=== PATIENT | male | born 1980 | race Caucasian/White ===

== ENCOUNTER 2022-03-10 13:58 | Day surgery (SDC) | payer OTHER, SELFPAY ==
[2022-03-10] VITALS (7 sets, daily range): BP systolic 128–164; BP diastolic 79–114; PULSE 66–78; RESP 18; TEMP 36.3–36.7; O2SAT 97–98; BMI 37.7; BMI 40.4
--- NOTE | 2022-03-10 15:23 | CRLHL7_ITS ---
For Patients: As a result of the Century Cures Act, medical imaging exams and procedure reports are released immediately into your electronic medical record. You may view this report before your referring provider. If you have questions, please contact your health care provider. INDICATION: Eval for cholecystitis.. TECHNIQUE: Ultrasound abdomen limited. Sonographic images of the right upper quadrant were obtained using coates-scale and color Doppler images. COMPARISON: None. FINDINGS: Liver: Echogenic and heterogeneous.. No suspicious masses. No intrahepatic biliary dilatation. Gallbladder: A few stones are identified in the gallbladder neck. Mild wall thickening measuring up to 6 millimeters. No pericholecystic fluid. Negative sonographic Blanchard`s sign reported. Common bile duct: 9 mm, mildly dilated. Pancreas: Not well visualized. Right kidney: Normal in size. Normal echotexture and cortex. No suspicious masses, stones, or hydronephrosis. Vasculature: Proximal abdominal aorta and IVC are unremarkable. IMPRESSION: Cholelithiasis with mild gallbladder wall thickening. No pericholecystic fluid. Negative sonographic Blanchard sign reported. Findings are nonspecific but can be seen in the setting of cystitis. Hepatic steatosis. Dictated by Nahun Crespo MD @ 03/10/2022 4:30:19 PM (Electronically Signed)
--- NOTE | 2022-03-10 15:25 | ED.GENADULT ---
HPI - General Adult General Time Seen by Provider: 15:25 <Georgi Gupta MD - Last Filed: 03/10/22 20:22> Date Seen: 03/10/22 <Georgi Gupta MD - Last Filed: 03/10/22 20:22> Chief complaint: Abdominal Pain <Georgi Gupta MD - Last Filed: 03/10/22 20:22> Stated complaint: Abdominal Pain, white stool <Georgi Gupta MD - Last Filed: 03/10/22 20:22> Time Seen by Provider: 03/10/22 15:10 <Georgi Gupta MD - Last Filed: 03/10/22 20:22> Source: patient <Georgi Gupta MD - Last Filed: 03/10/22 20:22> History of Present Illness HPI narrative: Brayden is a 42-year-old male past medical history includes depression presents emerged department with with abdominal pain. Patient states that over the last month he has had intermittent epigastric abdominal pain. He had 1 episode 1 month ago after golfing, he felt like he was going to vomit, he ended up belching in the pain improved. Over the last 2 days the pain has persisted, pain is epigastric , radiates to the right upper quadrant area, associated nausea but no vomiting. Gets worse with certain foods. Denies any chest pain or shortness of breath, denies any diarrhea or constipation, denies any urinary complaints. No history of any abdominal surgeries, no history of any CAD. Pain has been persistent over the last 2 days, 2/10 so he came in to be evaluated. He has tried [id number] and acid which does not help. <Georgi Gupta MD - Last Filed: 03/10/22 20:22> Related Data Home medications: Home Medications Medication Instructions Recorded Confirmed fluoxetine 20 mg capsule 20 mg PO QDAY 03/03/22 03/03/22 trazodone 50 mg tablet 50 - 150 mg PO .HS tab 03/03/22 03/03/22 <Georgi Gupta MD - Last Filed: 03/10/22 20:22> Allergies/adverse reactions: Allergies Allergy/AdvReac Type Severity Reaction Status Date / Time Penicillins Allergy Mild Verified 03/03/22 07:35 <Georgi Gupta MD - Last Filed: 03/10/22 20:22> Review of Systems Status of ROS: Reports: 10 or more systems reviewed and unremarkable except as noted in History and below <Georgi Gupta MD - Last Filed: 03/10/22 20:22> [facility] Medical History: Medical History (Updated 03/10/22 @ 19:45 by Radames Ann MD) Depression Hyperlipemia Sleep apnea with use of continuous positive airway pressure (CPAP) <Georgi Gupta MD - Last Filed: 03/10/22 20:22> Surgical History: Surgical History (Updated 03/03/22 @ 07:34 by Dionte Lawson PA-C) History of tonsillectomy <Georgi Gupta MD - Last Filed: 03/10/22 20:22> Family History: Family History (Updated 03/03/22 @ 07:39 by Dionte Lawson PA-C) Father Hypercholesteremia Sister Thyroid disease Stroke Diane-Danlos disease Other Coronary artery disease Family history of breast cancer Leukemia Lung cancer Prostate cancer <Georgi Gupta MD - Last Filed: 03/10/22 20:22> Social History: Social History Smoking Status: Never smoker Do you use any of these nicotine containing products: None Second hand tobacco smoke exposure: Yes How often do you have a drink containing alcohol: 2-3 times a week How many standard drinks containing alcohol do you have on a typical day: 1 or 2 How often do you have six or more drinks on one occasion: Monthly AUDIT-C Alcohol total score: 5 Non-prescribed substance use: denies use service: No <Georgi Gupta MD - Last Filed: 03/10/22 20:22> Exam Narrative: Exam Narrative: General: No obvious distress, nontoxic in appearance HEENT: Pupils equal round reactive to light, extraocular muscles intact Neck: Supple full range of motion Lungs: Clear to auscultation Heart normal sinus rhythm S1-S2 Abdomen: Bowel sounds present, tender to palpation epigastric and right upper quadrant Muscle skeletal: +5 upper lower extremities Neuro: Awake alert and oriented x3 Psych: Mood and affect normal <Georgi Gupta MD - Last Filed: 03/10/22 20:22> Const: Vital Signs, click to edit/add: Vital Signs - 24 hr 03/10/22 14:09 03/10/22 16:05 Temperature 97.8 F Pulse Rate [Right Radial] 67 Respiratory Rate 18 Blood Pressure [Ri ght Upper Arm] 128/79 136/92 H Pulse Oximetry 97 97 <Georgi Gupta MD - Last Filed: 03/10/22 20:22> Course Course Hospital Course: Work up will include, basic labs including CBC, CRP, lipase, troponin I, CMP and urinalysis, will give him GI cocktail, seems more related to heartburn or possible gallbladder, will also obtain U.S. gallbladder. Pain is 09/06, and patient agree <Georgi Gupta MD - Last Filed: 03/10/22 20:22> Reevaluation(s) Reevaluation #1: Patient was updated on his imaging and lab results, ultrasound showed mildly gallbladder wall thickening at 6 mm, common bile duct mildly dilated at 9 mm, no pericholecystic fluid negative Blanchard sign, this was read by Radiology. CBC showed no leukocytosis, CRP mildly elevated at 1.5, metabolic panel showed total bilirubin 04.6, AST of 630, alkaline phosphatase 341. Plan to call Dr. Mendez surgery on-call, she recommended is obtaining a direct bilirubin, then if elevated consideration for cholecystectomy tomorrow. Will also repeat troponiI. This was discussed with patient and narrowing agreement. <Georgi Gupta MD - Last Filed: 03/10/22 20:22> Time: 16:57 <Georgi Gupta MD - Last Filed: 03/10/22 20:22> Reevaluation #2: Patient was updated on his lab results, direct bilirubin was normal, 2nd troponin was negative, urinalysis within normal limits. Spoke with Dr. Mendez, she recommended admission for cholecystectomy tomorrow. Spoke with hospitalist on-call Dr. Holly ROCK, she accepts care of the patient to a [facility] surgery bed. All questions answered. <Georgi Gupta MD - Last Filed: 03/10/22 20:22> Vital Signs Vital signs: Initial Vital Signs Temperature 97.8 F 03/10/22 14:09 Temperature Source Temporal Artery Scan 03/10/22 14:09 Pulse Rate 67 03/10/22 14:09 Pulse Rhythm 03/10/22 14:09 Respiratory Rate 18 03/10/22 14:09 Blood Pressure 128/79 03/10/22 14:09 Blood Pressure Mean 95 03/10/22 14:09 Blood Pressure Position Sitting 03/10/22 14:09 Pulse Oximetry 97 03/10/22 14:09 Oxygen Delivery Method 03/10/22 14:09 Vital Signs Temperature 97.8 F 03/10/22 14:09 Pulse Rate 67 03/10/22 14:09 Respiratory Rate 18 03/10/22 14:09 Blood Pressure 128/79 03/10/22 14:09 Pulse Oximetry 97 03/10/22 14:09 Temperature 97.8 F 03/10/22 14:09 Pulse Rate 67 03/10/22 14:09 Respiratory Rate 18 03/10/22 14:09 Blood Pressure 136/92 H 03/10/22 16:05 Pulse Oximetry 97 03/10/22 16:05 <Georgi Gupta MD - Last Filed: 03/10/22 20:22> Medical Decision Making Lab Data Labs: Lab Results 03/10/22 03/10/22 03/10/22 Range/Units 15:30 15:40 15:45 WBC 8.36 (4.50-11.00) K/uL RBC 4.88 (4.30-5.90) m/uL Hgb 13.9 (13.5-17.5) gm/dL Hct 44.1 (37.0-53.0) % MCV 90 (80-100) fL MCH 29 (26-34) pg MCHC 32 (32-36) gm/dL RDW Coeff of Aye 13.8 (11.5-15.5) % Plt Count 327 (140-440) K/uL Neut % (Auto) 69.3 (42.0-72.0) % Lymph % (Auto) 19.1 L (20-44) % [place] % (Auto) 8.0 (0.0-11.0) % Eos % (Auto) 2.5 (0.0-7.0) % Baso % (Auto) 0.6 (0.0-3.0) % Neut # (Auto) 5.79 (1.7-7.0) K/uL Lymph # (Auto) 1.60 (0.90-2.90) K/uL [place] # (Auto) 0.70 (0.00-0.90) K/UL Eos # (Auto) 0.21 (0.00-0.50) K/uL Baso # (Auto) 0.05 (0.00-0.30) K/uL Abs Immat Gran (auto) 0.04 (0.00-0.30) K/uL Sodium (135-149) mmol/L Potassium (3.6-5.1) mmol/L Chloride (96-114) mmol/L Carbon Dioxide (20-32) mmol/L BUN (5-24) mg/dL Creatinine (0.5-1.5) mg/dL Estimated Creat Clear Estimated GFR ml/min Glucose (60-115) mg/dL Calcium (8.4-10.6) mg/dL Total Bilirubin (0.1-1.5) mg/dL Direct Bilirubin 0.3 (0.0-0.5) mg/dL AST (12-35) U/L ALT (4-50) U/L Alkaline Phosphatase (40-150) U/L Troponin I 0.05 H (0.01-0.04) ng/mL C-Reactive Protein (0.5-1.0) mg/dL Total Protein (6.0-8.3) g/dL Albumin (3.3-5.0) g/dL Lipase (23-300) U/L Urine Color (Yellow) Urine Appearance (Clear) Urine pH (5.0-8.5) Ur Specific [place] (1.000-1.030) Urine Protein (Negative) Urine Glucose (UA) (Negative) Urine Ketones (Negative) Urine Blood (Negative) Urine Nitrite (Negative) Urine Bilirubin (Negative) Urine Urobilinogen (0.2-1.0) Ur Leukocyte Esterase (Negative) Urine RBC (0-2) Urine WBC (0-5) Ur Squamous Epith Cells (None-Few) Urine Bacteria (None) SARS-CoV-2 (PCR) (Negative) 03/10/22 03/10/22 03/10/22 Range/Units 15:45 15:55 17:42 WBC (4.50-11.00) K/uL RBC (4.30-5.90) m/uL Hgb (13.5-17.5) gm/dL Hct (37.0-53.0) % MCV (80-100) fL MCH (26-34) pg MCHC (32-36) gm/dL RDW Coeff of Aye (11.5-15.5) % Plt Count (140-440) K/uL Neut % (Auto) (42.0-72.0) % Lymph % (Auto) (20-44) % [place] % (Auto) (0.0-11.0) % Eos % (Auto) (0.0-7.0) % Baso % (Auto) (0.0-3.0) % Neut # (Auto) (1.7-7.0) K/uL Lymph # (Auto) (0.90-2.90) K/uL [place] # (Auto) (0.00-0.90) K/UL Eos # (Auto) (0.00-0.50) K/uL Baso # (Auto) (0.00-0.30) K/uL Abs Immat Gran (auto) (0.00-0.30) K/uL Sodium 139 (135-149) mmol/L Potassium 5.4 H (3.6-5.1) mmol/L Chloride 106 (96-114) mmol/L Carbon Dioxide 23 (20-32) mmol/L BUN 13 (5-24) mg/dL Creatinine 0.9 (0.5-1.5) mg/dL Estimated Creat Clear 132.61 Estimated GFR 110 ml/min Glucose 102 (60-115) mg/dL Calcium 9.0 (8.4-10.6) mg/dL Total Bilirubin 4.6 H (0.1-1.5) mg/dL Direct Bilirubin (0.0-0.5) mg/dL AST 630 H (12-35) U/L ALT 21 (4-50) U/L Alkaline Phosphatase 341 H (40-150) U/L Troponin I < 0.01 L (0.01-0.04) ng/mL C-Reactive Protein 1.5 H (0.5-1.0) mg/dL Total Protein 7.7 (6.0-8.3) g/dL Albumin 4.5 (3.3-5.0) g/dL Lipase 88 (23-300) U/L Urine Color Allie A (Yellow) Urine Appearance Clear (Clear) Urine pH 5.5 (5.0-8.5) Ur Specific [place] 1.020 (1.000-1.030) Urine Protein Negative (Negative) Urine Glucose (UA) Negative (Negative) Urine Ketones Negative (Negative) Urine Blood Trace-lysed A (Negative) Urine Nitrite Negative (Negative) Urine Bilirubin 3+ A (Negative) Urine Urobilinogen 0.2 (0.2-1.0) Ur Leukocyte Esterase Negative (Negative) Urine RBC 0-2 (0-2) Urine WBC 0-2 (0-5) Ur Squamous Epith Cells None (None-Few) Urine Bacteria None (None) SARS-CoV-2 (PCR) (Negative) 03/10/22 Range/Units 18:39 WBC (4.50-11.00) K/uL RBC (4.30-5.90) m/uL Hgb (13.5-17.5) gm/dL Hct (37.0-53.0) % MCV (80-100) fL MCH (26-34) pg MCHC (32-36) gm/dL RDW Coeff of Aye (11.5-15.5) % Plt Count (140-440) K/uL Neut % (Auto) (42.0-72.0) % Lymph % (Auto) (20-44) % [place] % (Auto) (0.0-11.0) % Eos % (Auto) (0.0-7.0) % Baso % (Auto) (0.0-3.0) % Neut # (Auto) (1.7-7.0) K/uL Lymph # (Auto) (0.90-2.90) K/uL [place] # (Auto) (0.00-0.90) K/UL Eos # (Auto) (0.00-0.50) K/uL Baso # (Auto) (0.00-0.30) K/uL Abs Immat Gran (auto) (0.00-0.30) K/uL Sodium (135-149) mmol/L Potassium (3.6-5.1) mmol/L Chloride (96-114) mmol/L Carbon Dioxide (20-32) mmol/L BUN (5-24) mg/dL Creatinine (0.5-1.5) mg/dL Estimated Creat Clear Estimated GFR ml/min Glucose (60-115) mg/dL Calcium (8.4-10.6) mg/dL Total Bilirubin (0.1-1.5) mg/dL Direct Bilirubin (0.0-0.5) mg/dL AST (12-35) U/L ALT (4-50) U/L Alkaline Phosphatase (40-150) U/L Troponin I (0.01-0.04) ng/mL C-Reactive Protein (0.5-1.0) mg/dL Total Protein (6.0-8.3) g/dL Albumin (3.3-5.0) g/dL Lipase (23-300) U/L Urine Color (Yellow) Urine Appearance (Clear) Urine pH (5.0-8.5) Ur Specific [place] (1.000-1.030) Urine Protein (Negative) Urine Glucose (UA) (Negative) Urine Ketones (Negative) Urine Blood (Negative) Urine Nitrite (Negative) Urine Bilirubin (Negative) Urine Urobilinogen (0.2-1.0) Ur Leukocyte Esterase (Negative) Urine RBC (0-2) Urine WBC (0-5) Ur Squamous Epith Cells (None-Few) Urine Bacteria (None) SARS-CoV-2 (PCR) Negative SARS-CoV-2 (Negative) <Georgi Gupta MD - Last Filed: 03/10/22 20:22> Discharge Plan Discharge Clinical Impression: Acute cholecystitis <Georgi Gupta MD - Last Filed: 03/10/22 20:22>
[2022-03-10 16:04] LABS: Basophils Absolute Auto 0.05 K/uL (0.00-0.30); Basophils Percent Auto 0.6 % (0.0-3.0); Eosinophils Absolute Auto 0.21 K/uL (0.00-0.50); Eosinophils Percent Auto 2.5 % (0.0-7.0); Hematocrit 44.1 % (37.0-53.0); Hemoglobin* 13.9 gm/dL (13.5-17.5); Immature Granulocytes Abs Auto 0.04 K/uL (0.00-0.30); Lymphocytes Percent Auto 19.1 % (20-44); Mean Corpuscular HGB Conc 32 gm/dL (32-36); Mean Corpuscular Hemoglobin 29 pg (26-34); Mean Corpuscular Volume 90 fL (80-100); Neutrophils Absolute Auto 5.79 K/uL (1.7-7.0); Neutrophils Percent Auto 69.3 % (42.0-72.0); Platelet Count* 327 K/uL (140-440); RDW Coefficient of Variation % 13.8 % (11.5-15.5); Red Blood Count 4.88 m/uL (4.30-5.90); White Blood Count* 8.36 K/uL (4.50-11.00)
[2022-03-10 16:12] LABS: Slide Review Reflex No
[2022-03-10 16:15] LABS: Appearance Urine Clear (Clear); Bilirubin Urine 3+ (Negative); Blood Urine Trace-lysed (Negative); Color Urine Amber (Yellow); Glucose Urine Negative (Negative); Ketones Urine Negative (Negative); Leukocyte Esterase Urine Negative (Negative); Nitrite Urine Negative (Negative); Protein Urine Negative (Negative); Urobilinogen Urine 0.2 (0.2-1.0); pH Urine 5.5 (5.0-8.5)
[2022-03-10 16:31] LABS: RBC Urine 0-2 (0-2); WBC Urine 0-2 (0-5)
[2022-03-10 16:31] LABS: Albumin* 4.5 g/dL (3.3-5.0); Chloride* 106 mmol/L (96-114)
[2022-03-10 16:32] LABS: Potassium* 5.4 mmol/L (3.6-5.1); Sodium* 139 mmol/L (135-149)
[2022-03-10 16:34] LABS: Aspartate Amino Transferase* 630 U/L (12-35); Bilirubin Total* 4.6 mg/dL (0.1-1.5); Carbon Dioxide* 23 mmol/L (20-32); Creatinine* 0.9 mg/dL (0.5-1.5); Est. Creatinine Clearance* 132.61; Estimated Glomerular Filt Rate 110 ml/min; Total Protein* 7.7 g/dL (6.0-8.3)
[2022-03-10 16:35] LABS: Alkaline Phosphatase* 341 U/L (40-150); Blood Urea Nitrogen* 13 mg/dL (5-24); Glucose* 102 mg/dL (60-115); Lipase* 88 U/L (23-300)
[2022-03-10 16:37] LABS: C Reactive Protein* 1.5 mg/dL (0.5-1.0)
[2022-03-10 16:48] LABS: Alanine Aminotransferase* 21 U/L (4-50)
[2022-03-10] MEDS: GI COCKTAIL (VISC LIDO/ANTACID) 30 ML PO (16:49)
[2022-03-10 16:58] LABS: Troponin I* 0.05 ng/mL (0.01-0.04)
[2022-03-10 17:10] LABS: Bilirubin Direct* 0.3 mg/dL (0.0-0.5)
[2022-03-10 18:17] LABS: Troponin I* < 0.01 ng/mL (0.01-0.04)
--- NOTE | 2022-03-10 19:14 | P.IMHP_ITS ---
Hospitalist- H&P: HPI History of Present Illness Time Seen by Provider: 20:00 Date Seen: 03/10/22 Chief complaint: Abdominal Pain, white stool Narrative: Brayden Boucher is a 42 year old male who presented to the Emergency Room for epigastric abdominal pain. He first noted pain, intermittently, one month ago. Last flare began 48 hours ago, still having epigastric pain. Started having nurse staff community health colored stools over the past 48 hours, no other stool changes. No uri nary changes. No fevers. Minimal appetite over the past few days. No CP, dyspnea, or tachypnea. Recent URI symptoms (cough and rhinorrhea), negative COVID testing. ER Course and findings: - elevated LFTs - cholecystitis on ultrasound - elevated potassium (wnl on repeat) - mildly elevated troponin of 0.05, repeat wnl at <0.01, normal EKG - given one dose of po Levaquin History of depression/anxiety, on Prozac. History of insomnia, on Trazodone. On CPAP for TONI. No history of blood clots. Tonsillectomy in 2nd grade. No personal or family history of anesthetic complications. Family history of cardiac disease in grandfather and uncles, seen by Cardiology with normal TTE in 2020. Lives with with and son in [place]. 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 Nonsmoker. Review of Systems Status of ROS: Reports: 10 or more systems reviewed and unremarkable except as noted in History and below [facility] Medical History (Updated 03/10/22 @ 19:45 by Radames Ann MD) Depression Hyperlipemia Sleep apnea with use of continuous positive airway pressure (CPAP) Surgical History (Updated 03/03/22 @ 07:34 by Dionte Lawson PA-C) History of tonsillectomy Family History (Updated 03/03/22 @ 07:39 by Dionte Lawson PA-C) Father Hypercholesteremia Sister Thyroid disease Stroke Diane-Danlos disease Other Coronary artery disease Family history of breast cancer Leukemia Lung cancer Prostate cancer Social History Smoking Status: Never smoker Do you use any of these nicotine containing products: None Second hand tobacco smoke exposure: Yes How often do you have a drink containing alcohol: 2-3 times a week How many standard drinks containing alcohol do you have on a typical day: 1 or 2 How often do you have six or more drinks on one occasion: Monthly AUDIT-C Alcohol total score: 5 Non-prescribed substance use: denies use service: No Meds Home Medications and Allergies Home Medications Medication Instructions Recorded Confirmed Type fluoxetine 20 mg capsule 20 mg PO QDAY 03/03/22 03/03/22 History trazodone 50 mg tablet 50 - 150 mg PO .HS tab 03/03/22 03/03/22 History Allergies Allergy/AdvReac Type Severity Reaction Status Date / Time Penicillins Allergy Mild Verified 03/03/22 07:35 Exam Narrative: Exam Narrative: GEN: Alert and oriented, answering questions appropriately and nontoxic in appearance HEENT: Normal external ears, EOMIs bilaterally, no scleral icterus CV: RRR, No concerning murmurs, rubs, or gallops R: LCTA bilaterally without concerning wheezing, rales, or rhonchi Ab: protuberant, no rebound or guarding, mild discomfort with palpation of epigastric region Ext: wwp, no concerning edema Skin: No concerning skin lesions or rashes on exposed skin Neuro: Nonfocal Psych: Appropriate Const: Vital Signs, click to edit/add: Vital Signs - 24 hr 03/10/22 14:09 03/10/22 16:05 Temperature 97.8 F Pulse Rate [Right Radial] 67 Respiratory Rate 18 Blood Pressure [Ri ght Upper Arm] 128/79 136/92 H Pulse Oximetry 97 97 Hospitalist - H&P: Result Labs Labs: Short CBC 03/10/22 Range/Units 15:45 WBC 8.36 (4.50-11.00) K/uL Hgb 13.9 (13.5-17.5) gm/dL Hct 44.1 (37.0-53.0) % Plt Count 327 (140-440) K/uL BMP 03/10/22 15:45 Sodium 139 Potassium 5.4 H Chloride 106 Carbon Dioxide 23 BUN 13 Creatinine 0.9 Glucose 102 Calcium 9.0 Cardiac Enzymes 03/10/22 03/10/22 Range/Units 15:40 17:42 Troponin I 0.05 H < 0.01 L (0.01-0.04) ng/mL Liver Function 03/10/22 03/10/22 Range/Units 15:30 15:45 Total Bilirubin 4.6 H (0.1-1.5) mg/dL Direct Bilirubin 0.3 (0.0-0.5) mg/dL AST 630 H (12-35) U/L ALT 21 (4-50) U/L Alkaline Phosphatase 341 H (40-150) U/L Albumin 4.5 (3.3-5.0) g/dL Urine 03/10/22 Range/Units 15:55 Urine Color Allie A (Yellow) Urine Appearance Clear (Clear) Urine pH 5.5 (5.0-8.5) Ur Specific [place] 1.020 (1.000-1.030) Urine Protein Negative (Negative) Urine Glucose (UA) Negative (Negative) Assessment and Plan Assessment and plan (1) Acute cholecystitis: Status: Acute Plan Admit to Same day surgery, Dr. Ann will see in the morning for cholecys tectomy. NPO after midnight. Repeat LFTs, Potassium, and troponin in the morning. Comorbidities optimized for surgery and anesthesia.
[2022-03-10] MEDS: levoFLOXacin 750 MG TABLET PO (19:19)
[2022-03-10 20:20] LABS: SARS PCR* Negative SARS-CoV-2 (Negative)
[2022-03-10 20:32] LABS: Potassium* 4.9 mmol/L (3.6-5.1)
--- NOTE | 2022-03-10 21:07 | ED.NURSE ---
report was given to karl tolbert on m/s. will go to 260 via w/c. has his book, cell phone, shirt. shorts and sandals on feet.
[2022-03-10] MEDS: PANTOPRAZOLE SODIUM 40 MG INJ IVP (21:27)
[2022-03-10] MEDS: ACETAMINOPHEN 325 MG TABLET 975 MG PO (21:27)
[2022-03-10] MEDS: TRAZODONE HCL 50 MG TABLET 100 MG PO (21:35)
[2022-03-11] VITALS (28 sets, daily range): BP systolic 120–160; BP diastolic 66–89; PULSE 51–81; RESP 12–20; TEMP 36–37.1; O2SAT 91–100
--- NOTE | 2022-03-11 | CRLHL7_ITS ---
For Patients: As a result of the Century Cures Act, medical imaging exams and procedure reports are released immediately into your electronic medical record. You may view this report before your referring provider. If you have questions, please contact your health care provider. INDICATION : Laparoscopic cholecystectomy. TECHNIQUE : Intraoperative cholangiogram. Contrast injected via gallbladder neck and cystic duct. FINDINGS : Fluoroscopy time was 78 seconds. 7 images were obtained. IMPRESSION : Several filling defects are present within the common bile duct. The biliary system is not dilated. I do not see contrast within the duodenum. Dictated by Valente East MD @ 03/11/2022 3:23:12 PM (Electronically Signed)
--- NOTE | 2022-03-11 06:16 | PC.NURSE ---
END OF SHIFT NOTE: PT PLEASANT AND COOPERATIVE. ARRIVED TO FLOOR 2055. PT GIVEN SOUP AND CRACKERS WITH SPRITE. 0 PT HAD EMESIS OF 700CC. PT NPO SINCE MIDNIGHT. PT REQUESTED RESTFUL NIGHT VITALS. PT BROUGHT HOME CPAP THAT WAS REVIEWED BY HOUSE SUP AND PT UTILIZED THROUGHOUT NIGHT. AMBULATES INDEPENDENTLY.
[2022-03-11 06:49] LABS: Basophils Absolute Auto 0.05 K/uL (0.00-0.30); Basophils Percent Auto 0.7 % (0.0-3.0); Eosinophils Percent Auto 2.7 % (0.0-7.0); Hematocrit 42.2 % (37.0-53.0); Hemoglobin* 13.6 gm/dL (13.5-17.5); Immature Granulocytes Abs Auto 0.06 K/uL (0.00-0.30); Mean Corpuscular HGB Conc 32 gm/dL (32-36); Mean Corpuscular Hemoglobin 29 pg (26-34); Mean Corpuscular Volume 89 fL (80-100); Monocytes Percent Auto 10.4 % (0.0-11.0); Neutrophils Absolute Auto 4.84 K/uL (1.7-7.0); Neutrophils Percent Auto 66.4 % (42.0-72.0); Platelet Count* 315 K/uL (140-440); Red Blood Count 4.74 m/uL (4.30-5.90)
[2022-03-11 07:02] LABS: Slide Review Reflex No
[2022-03-11 07:11] LABS: Albumin* 4.1 g/dL (3.3-5.0); Chloride* 104 mmol/L (96-114); Sodium* 138 mmol/L (135-149)
[2022-03-11 07:13] LABS: Creatinine* 0.9 mg/dL (0.5-1.5); Est. Creatinine Clearance* 132.61; Estimated Glomerular Filt Rate 110 ml/min
[2022-03-11 07:14] LABS: Alkaline Phosphatase* 358 U/L (40-150); Aspartate Amino Transferase* 451 U/L (12-35); Bilirubin Total* 5.3 mg/dL (0.1-1.5); Blood Urea Nitrogen* 10 mg/dL (5-24); Carbon Dioxide* 28 mmol/L (20-32); Glucose* 110 mg/dL (60-115); Lipase* 70 U/L (23-300)
[2022-03-11 07:27] LABS: Troponin I* < 0.01 ng/mL (0.01-0.04)
[2022-03-11 07:58] LABS: Alanine Aminotransferase* 945 U/L (4-50)
--- NOTE | 2022-03-11 08:34 | P.GSCN_ITS ---
History of Present Illness Consult details Consult date: 03/11/22 Narrative: 42-year-old male presented to emergency room with epigastric abdominal pain. Patient states that he initially experienced a similar episode of pain 1 month ago. In the last month he had 2 additional episodes. His most recent episode started last Monday. The pain was described as cramping and continued on the last 2 days. He cannot recall eating anything fatty. He thinks that his pain started during a work meeting. The crampy pain lasted for about 45 minutes but he continued to have ongoing dull ache in the epigastrium. The pain was also radiating to the right upper quadrant. In the emergency room he was found to have a normal WBC of 8.3. Total bilirubin was 4.6 was direct bilirubin of 0.3. His AST was 630 and ALT of 21, alkaline phosphatase 341. Patient's troponin initially was 0.05 and then repeat troponin was 0.01. Patient potassium was also elevated at 5.4 and decreased on repeat lab to 4.9. Patient had an abdominal ultrasound that showed cholelithiasis, gallbladder wall was 6 mm in the common bile duct was dilated to 9 m. Review of Systems Narrative: General: no fevers HENT: no problems swallowing CV: no shortness of breath Resp: no cough GI: see above : no dysuria, no increased urinary frequency Skin: no new rashes Musculoskeletal: no back pain Neuro: no muscle weakness Psyche: depression and anxiety [facility] Medical History (Updated 03/11/22 @ 09:10 by Radames Ann MD) Choledocholithiasis with acute cholecystitis Depression Hyperlipemia Sleep apnea with use of continuous positive airway pressure (CPAP) Surgical History History of tonsillectomy Family History Father Hypercholesteremia Sister Thyroid disease Stroke Diane-Danlos disease Other Coronary artery disease Family history of breast cancer Leukemia Lung cancer Prostate cancer Social History (Updated 03/11/22 @ 08:39 by Radames Ann MD) Narrative: patient works as client business manager. Highest level of school completed/degree received: Bachelor's degree Smoking Status: Never smoker Do you use any of these nicotine containing products: None Second hand tobacco smoke exposure: Yes How often do you have a drink containing alcohol: 2-3 times a week How many standard drinks containing alcohol do you have on a typical day: 1 or 2 How often do you have six or more drinks on one occasion: Monthly AUDIT-C Alcohol total score: 5 Non-prescribed substance use: denies use Caffeine: Yes (coffee 2 cups per day) service: No Meds Home Medications and Allergies Home Medications Medication Instructions Recorded Confirmed Type fluoxetine 20 mg capsule 20 mg PO QDAY 03/03/22 03/03/22 History trazodone 50 mg tablet 50 - 150 mg PO .HS tab 03/03/22 03/03/22 History Allergies Allergy/AdvReac Type Severity Reaction Status Date / Time Penicillins Allergy Mild Verified 03/03/22 07:35 Exam Narrative: Exam Narrative: General appearance: Alert, cooperative, and in no distress Pulmonary: Chest symmetric, lungs clear bilaterally Cardiovascular Heart: Regular rate and rhythm, S1, S2, no murmurs/rubs/gallops Gastrointestinal Abdominal: soft, not distended, tender to palpation in epigastrium, negative Blanchard's sign. Skin: Normal skin color, texture, and turgor. No rashes or lesions. Psychiatric: Alert, cooperative, normal affect. Const: Vital Signs, click to edit/add: Vital Signs - 24 hr 03/10/22 14:09 03/10/22 16:05 03/10/22 18:36 Temperature 97.8 F Pulse Rate [Right Pulse Oximeter] Pulse Rate [Right Radial] 67 Respiratory Rate 18 Blood Pressure [Ri ght Arm] Blood Pressure [Ri ght Upper Arm] 128/79 136/92 H 151/114 H Pulse Oximetry 97 97 98 03/10/22 20:30 03/10/22 20:45 03/10/22 21:27 Temperature 97.4 F L 98.0 F Pulse Rate [Right Pulse Oximeter] Pulse Rate [Right Radial] 78 Respiratory Rate 18 Blood Pressure [Ri ght Arm] Blood Pressure [Ri ght Upper Arm] 164/92 H Pulse Oximetry 97 98 03/10/22 21:45 03/11/22 00:00 03/11/22 00:47 Temperature 98.0 F Pulse Rate [Right Pulse Oximeter] 66 Pulse Rate [Right Radial] Respiratory Rate 18 16 16 Blood Pressure [Ri ght Arm] 161/85 H Blood Pressure [Ri ght Upper Arm] Pulse Oximetry 97 97 03/11/22 03:00 Temperature Pulse Rate [Right Pulse Oximeter] Pulse Rate [Right Radial] Respiratory Rate 20 Blood Pressure [Ri ght Arm] Blood Pressure [Ri ght Upper Arm] Pulse Oximetry Results Labs Labs: Abnormal lab results 03/10/22 03/10/22 03/10/22 Range/Units 15:40 15:45 15:45 Lymph % (Auto) 19.1 L (20-44) % Potassium 5.4 H (3.6-5.1) mmol/L Total Bilirubin 4.6 H (0.1-1.5) mg/dL AST 630 H (12-35) U/L ALT (4-50) U/L Alkaline Phosphatase 341 H (40-150) U/L Troponin I 0.05 H (0.01-0.04) ng/mL C-Reactive Protein 1.5 H (0.5-1.0) mg/dL Urine Color (Yellow) Urine Blood (Negative) Urine Bilirubin (Negative) 03/10/22 03/10/22 03/11/22 Range/Units 15:55 17:42 06:12 Lymph % (Auto) 19.0 L (20-44) % Potassium (3.6-5.1) mmol/L Total Bilirubin (0.1-1.5) mg/dL AST (12-35) U/L ALT (4-50) U/L Alkaline Phosphatase (40-150) U/L Troponin I < 0.01 L (0.01-0.04) ng/mL C-Reactive Protein (0.5-1.0) mg/dL Urine Color Allie A (Yellow) Urine Blood Trace-lysed A (Negative) Urine Bilirubin 3+ A (Negative) 03/11/22 Range/Units 06:12 Lymph % (Auto) (20-44) % Potassium (3.6-5.1) mmol/L Total Bilirubin 5.3 H (0.1-1.5) mg/dL AST 451 H (12-35) U/L ALT 945 H (4-50) U/L Alkaline Phosphatase 358 H (40-150) U/L Troponin I < 0.01 L (0.01-0.04) ng/mL C-Reactive Protein (0.5-1.0) mg/dL Urine Color (Yellow) Urine Blood (Negative) Urine Bilirubin (Negative) Diabetes panel 03/10/22 03/10/22 03/11/22 Range/Units 15:45 17:42 06:12 Sodium 139 138 (135-149) mmol/L Potassium 5.4 H 4.9 4.0 (3.6-5.1) mmol/L Chloride 106 104 (96-114) mmol/L Carbon Dioxide 23 28 (20-32) mmol/L BUN 13 10 (5-24) mg/dL Creatinine 0.9 0.9 (0.5-1.5) mg/dL Glucose 102 110 (60-115) mg/dL Calcium 9.0 9.0 (8.4-10.6) mg/dL AST 630 H 451 H (12-35) U/L ALT 21 945 H (4-50) U/L Alkaline Phosphatase 341 H 358 H (40-150) U/L Total Protein 7.7 7.0 (6.0-8.3) g/dL Albumin 4.5 4.1 (3.3-5.0) g/dL Calcium panel 03/10/22 03/11/22 Range/Units 15:45 06:12 Calcium 9.0 9.0 (8.4-10.6) mg/dL Albumin 4.5 4.1 (3.3-5.0) g/dL Pituitary panel 03/10/22 03/10/22 03/11/22 Range/Units 15:45 17:42 06:12 Sodium 139 138 (135-149) mmol/L Potassium 5.4 H 4.9 4.0 (3.6-5.1) mmol/L Chloride 106 104 (96-114) mmol/L Carbon Dioxide 23 28 (20-32) mmol/L BUN 13 10 (5-24) mg/dL Creatinine 0.9 0.9 (0.5-1.5) mg/dL Glucose 102 110 (60-115) mg/dL Calcium 9.0 9.0 (8.4-10.6) mg/dL Adrenal panel 03/10/22 03/10/22 03/11/22 Range/Units 15:45 17:42 06:12 Sodium 139 138 (135-149) mmol/L Potassium 5.4 H 4.9 4.0 (3.6-5.1) mmol/L Chloride 106 104 (96-114) mmol/L Carbon Dioxide 23 28 (20-32) mmol/L BUN 13 10 (5-24) mg/dL Creatinine 0.9 0.9 (0.5-1.5) mg/dL Glucose 102 110 (60-115) mg/dL Calcium 9.0 9.0 (8.4-10.6) mg/dL Total Bilirubin 4.6 H 5.3 H (0.1-1.5) mg/dL AST 630 H 451 H (12-35) U/L ALT 21 945 H (4-50) U/L Alkaline Phosphatase 341 H 358 H (40-150) U/L Total Protein 7.7 7.0 (6.0-8.3) g/dL Albumin 4.5 4.1 (3.3-5.0) g/dL All other labs normal. Imaging Abdominal ultrasound report/results: report reviewed and image reviewed EKG: image reviewed (Regular rate and rhythm with no ST elevations.) Assessment and Plan Assessment and plan (1) Acute cholecystitis: Status: Acute (2) Choledocholithiasis with acute cholecystitis: Status: Acute Plan 42 yo M presents with persistent epigastric pain that is most likely due to acute cholecystitis and possible choledocholithiasis. I discussed with the patient his laboratory and ultrasound findings. Patient's repeat liver function tests today show continued total bilirubin, transaminitis and elevated alkaline phosphatase. I suspect that he has acute cholecystitis and possible choledocholithiasis given his dilated common bile duct on the ultrasound and elevated alkaline phosphatase. In addition, patient's direct bilirubin went up to 4.5 today which is suggestive of choledocholithiasis. I recommended to proceed with laparoscopic cholecystectomy with intraoperative cholangiogram and possible choledochoscopy. The procedure was discussed in detail. The risks of procedure including infection, bleeding, injury to intra- abdominal organs, injury to the common bile duct, the need for future ERCP, and exposure to COVID-19 were all discussed with the patient, and he agreed to proceed.
[2022-03-11 08:58] LABS: Bilirubin Direct* 4.5 mg/dL (0.0-0.5)
[2022-03-11] MEDS: LACTATED RINGERS 1000 ML 1,000 ML 100 ML IV ×4 (10:40→16:59)
[2022-03-11] MEDS: CEFAZOLIN 1 GM inj 3 GM IVP (11:00)
--- NOTE | 2022-03-11 13:14 | PC.NURSE ---
1000ml of NS for ureteroscope used during cholangiogram. 800ml used.
--- NOTE | 2022-03-11 14:14 | W.ANESCHARGE ---
Anesthesia Charges Start Date/Time Anesthesia Start Date: 03/11/22 Anesthesia Start Time: 10:40 Stop Date/Time Anesthesia Stop Date: 03/11/22 Anesthesia Stop Time: 14:10 Summary Emergency: No
[2022-03-11] MEDS: fentaNYL 100 MCG/2 ML inj 50 MCG IVP ×2 (14:18→14:23)
--- NOTE | 2022-03-11 14:20 | PC.NURSE ---
End of Shift: Patient pleasant and cooperative. Patient vitally stable, lungs clear, BS WNL, IV intact. Patient reported pain 1-2/10, no pain medication given. Patient is independent in room. Patient urinated before surgery. Switch of patient assignment when patient comes back from surgery, report given to new RN's.
--- NOTE | 2022-03-11 14:25 | P.GSOP_ITS ---
Operative Note Date of procedure: 03/11/22 Type of Procedure: 1. Laparoscopic cholecystectomy. 2. Intraoperative cholangiogram. 3. Laparoscopic common bile duct exploration. Procedure Description: After discussing the risks and benefits of the procedure, the patient signed informed consent.? The patient was brought to the operating room and placed on the operating table in supine position.? Care was taken to pad the patient's pressure points.?? The patient was then intubated by anesthesia.?? The operative site was then prepped and draped in the usual sterile fashion.? A time-out was then performed. A 5-mm laparoscopy port was placed in the left upper quadrant guided by a 5-mm laparoscope placed into a translucent trochar.~ Passage through the layers of the abdominal wall was visualized with the laparoscope.~ A pneumoperitoneum was established. A 0-degree 5-mm laparoscope was advanced into the abdomen. The abdomen was briefly surveyed, and no adhesions were noted. A 10-mm port were placed infraumbilically and two more 5 mm ports were placed on the right under direct visualization by laparoscope. The camera was then changed to 10 mm 30- degree scope and placed into the abdomen through the 10 mm port. The left upper quadrant port entrance was examined and no injury to intra-abdominal organs was identified. The gallbladder was identified, the fundus grasped and retracted cephalad. Omental adhesions were noted to the anterior surface of the gallbladder. Those adhesions were taken down with hook cautery. Infundibulum was grasped and retracted laterally, exposing the peritoneum overlying the triangle of Calot. This was then divided and exposed in a blunt fashion and with hook cautery. Common bile duct was not identified but care was taken not to injure it. The cystic artery was located anterior to the cystic duct. It was clearly going into the gallbladder. The cystic artery was then clipped with 2 5 mm clips on the patient's side and a single clip on the specimen side and divided with scissors. This allowed me to visualize the cystic duct more clearly. The cystic duct was then further dissected from adjacent tissues with hook cautery and bluntly. The cystic duct was clipped with a 5 mm clip on the gallbladder side and a small ductotomy was made with laparoscopic Metzenbaum scissors. 1 mg of glucagon was administered intravenously. Clear fluid came out from the ductotomy. An additional 5 mm port was placed under direct visualization in the right upper quadrant. A blue introducer from an Arrow cholangiogram kit was placed through the port and a cholangiocatheter was placed through the introducer and directed into the cystic duct. The catheter was then clipped with a single 5 mm clip at the ductotomy site to secure it in place. Fluoroscopy was brought onto the field and Optiray 300 contrast dye was injected through the cholangiocatheter. The biliary tree was visualized and the contrast did not empty into the duodenum. There was good filling of the right and left hepatic tree. At this time 5 mm clip on the cystic duct and cholangiocatheter were removed and the cholangiocatheter was removed from the cystic duct. I elected to proceed with laparoscopic common bile duct exploration. An angled tip 0.035 glidewire was advanced into the cystic duct and the common bile duct through the cystic ductotomy. Fluoroscopy was used to confirm presence of Glidewire in the common bile duct. The choledochal scope (ureteral scope at our facility) was advanced over the wire into the common bile duct. Presence of the choledochal scope in the common bile duct was confirmed with fluoroscopy as well . Yellow stone was identified in the common bile duct. The wire was then removed and a basket was advanced into the choledochoscope and into the common bile duct. I was able to visualize advancement of the basket into the common bile duct. Once the basket was opened, we were able to grab a large common bile duct stone. However, when we started to remove the stone out of the common bile duct, I was not able to remove it. It looked like the stone was stuck at the junction of the cystic duct and the common bile duct. We attempted to crush the stone with the basket by opening and closing the duct a few times. And a few small chunks of stone were seen to be floating freely in the common bile duct. However, when the stone was regrasped, I was still not able to remove the stone from the common bile duct. At this time I elected to release the stone from the basket to prevent injury to the common bile duct. The basket was then removed and the choledochoscope was removed. I then repeated the cholangiogram. The angiocatheter was advanced into the common bile duct and secured in place at the level of the datum ductotomy with a 5 mm clip. Contrast dye was injected into the common bile duct under fluoroscopy. We were able to see 2 filling defects in the common bile duct, and the dye did not empty into the small intestine. At this time I elected to proceed with completion cholecystectomy since this patient had a fairly large stone and would need ERCP. The the clip holding the cholangiocatheter and the cholangiocatheter were removed. The cystic duct was then clipped with 2 5 mm clips just below ductotomy. I also elected to place a PDS endoloop just distal to the clips to prevent bile leak during ERCP. The gallbladder was dissected from the liver bed in retrograde fashion using hookcautery. The gallbladder was placed into an Endo-Catch bag. It was difficult to remove the gallbladder from the infraumbilical incision and this incision had to be enlarged at the level of the skin and fascia. The gallbladder was finally removed from the abdomen. Surgical site was examined for bleeding. No bleeding was seen in the surgical field. The fascia of the infraumbilical incision was then closed with a running 0-0 vicryl. The closure was examined intra-abdominally and no intra-abdominal structures were incarcerated in the closure. Pneumoperitoneum was completely reduced after viewing removal of the trocars under direct vision. The skin was then closed with 4-0 monocryl and steristrips were applied. Instrument, sponge, and needle counts were correct at closure and at the conclusion of the case. The patient was transferred to PACU in stable condition. ? Findings: There was evidence of chronic and mild acute inflammation around the gallbladder. There was at least 1 large common bile duct stone that I was not able to remove during laparoscopic common bile duct exploration. Post exploration cholangiogram showed at least 2 filling defects. Anesthesia: GETA Surgeon: Radames Ann MD Condition: stable Disposition: PACU
[2022-03-11] MEDS: HYDROmorphone 0.5 mg/0.5 ml inj IVP ×3 (14:35→15:52)
[2022-03-11] MEDS: KETOROLAC 30 MG/ML inj IVP (14:43)
[2022-03-11] MEDS: LACTATED RINGERS 1000 ML 1,000 ML 35 ML IV (15:00)
[2022-03-11] MEDS: ONDANSETRON 2 MG/ML inj 4 MG IVP (15:34)
--- NOTE | 2022-03-11 16:26 | P.DS_ITS ---
DS: Providers Provider Primary care physician: Dionte Lawson PA-C Attending Physician on discharge: Radames Ann MD DS: Diagnosis Discharge Diagnosis (1) Acute cholecystitis: Status: Acute (2) Choledocholithiasis with acute cholecystitis: Status: Acute DS: Summary Hospital Course Hospital Course: Patient underwent lap cholecystectomy with intraoperative cholangiogram. He also had lap bile duct exploration for common bile duct stone but I was not able to removed the stone due to its size and the stone was left in the common bile duct. GI at [place] was contacted for ERCP. Patient will be transferred to [place] today when bed is available. Time Spent with Patient Time attestation: Total time spent providing and/or coordinating discharge services: Exam Const: Vital Signs, click to edit/add: Vital Signs - 24 hr 03/10/22 18:36 03/10/22 20:30 03/10/22 20:45 Temperature 97.4 F L Pulse Rate Pulse Rate [Right Pulse Oximeter] Pulse Rate [Right Radial] 78 Respiratory Rate 18 Blood Pressure Blood Pressure [Ri ght Arm] Blood Pressure [Ri ght Upper Arm] 151/114 H 164/92 H Pulse Oximetry 98 97 98 03/10/22 21:27 03/10/22 21:45 03/11/22 00:00 Temperature 98.0 F 98.0 F Pulse Rate Pulse Rate [Right Pulse Oximeter] 66 Pulse Rate [Right Radial] Respiratory Rate 18 16 Blood Pressure Blood Pressure [Ri ght Arm] 161/85 H Blood Pressure [Ri ght Upper Arm] Pulse Oximetry 97 03/11/22 00:47 03/11/22 03:00 03/11/22 07:00 Temperature 98.7 F Pulse Rate Pulse Rate [Right Pulse Oximeter] 58 L Pulse Rate [Right Radial] Respiratory Rate 16 20 14 Blood Pressure Blood Pressure [Ri ght Arm] 160/83 H Blood Pressure [Ri ght Upper Arm] Pulse Oximetry 97 96 03/11/22 08:47 03/11/22 14:05 03/11/22 14:10 Temperature 97.7 F Pulse Rate 81 79 Pulse Rate [Right Pulse Oximeter] Pulse Rate [Right Radial] Respiratory Rate 12 16 Blood Pressure 139/72 127/67 Blood Pressure [Ri ght Arm] Blood Pressure [Ri ght Upper Arm] Pulse Oximetry 96 100 99 03/11/22 14:14 07/15/22 14:15 03/11/22 14:20 Temperature Pulse Rate 76 77 70 Pulse Rate [Right Pulse Oximeter] Pulse Rate [Right Radial] Respiratory Rate 16 Blood Pressure 131/66 Blood Pressure [Ri ght Arm] Blood Pressure [Ri ght Upper Arm] Pulse Oximetry 91 91 95 03/11/22 14:25 03/11/22 14:26 03/11/22 14:30 Temperature 97.7 F Pulse Rate 61 61 69 Pulse Rate [Right Pulse Oximeter] Pulse Rate [Right Radial] Respiratory Rate 16 12 16 Blood Pressure 123/69 123/69 124/68 Blood Pressure [Ri ght Arm] Blood Pressure [Ri ght Upper Arm] Pulse Oximetry 94 100 92 03/11/22 14:35 03/11/22 14:40 03/11/22 14:45 Temperature Pulse Rate 73 68 72 Pulse Rate [Right Pulse Oximeter] Pulse Rate [Right Radial] Respiratory Rate 16 16 16 Blood Pressure 130/76 123/73 130/71 Blood Pressure [Ri ght Arm] Blood Pressure [Ri ght Upper Arm] Pulse Oximetry 96 96 99 03/11/22 14:50 03/11/22 14:55 03/11/22 15:00 Temperature Pulse Rate 68 58 L 51 L Pulse Rate [Right Pulse Oximeter] Pulse Rate [Right Radial] Respiratory Rate 16 16 16 Blood Pressure 121/76 123/74 123/76 Blood Pressure [Ri ght Arm] Blood Pressure [Ri ght Upper Arm] Pulse Oximetry 99 99 95 03/11/22 15:05 03/11/22 15:09 Temperature Pulse Rate 60 56 L Pulse Rate [Right Pulse Oximeter] Pulse Rate [Right Radial] Respiratory Rate 16 16 Blood Pressure 120/73 120/73 Blood Pressure [Ri ght Arm] Blood Pressure [Ri ght Upper Arm] Pulse Oximetry 96 97 DS: Data Data Completed and Pending Labs on day of discharge: Labs from last 24 hours 03/11/22 03/11/22 03/11/22 13:38 06:12 06:12 WBC RBC Hgb Hct MCV MCH MCHC RDW Coeff of Aye Plt Count Neut % (Auto) Lymph % (Auto) [place] % (Auto) Eos % (Auto) Baso % (Auto) Neut # (Auto) Lymph # (Auto) [place] # (Auto) Eos # (Auto) Baso # (Auto) Abs Immat Gran (auto) Sodium 138 Potassium 4.0 Chloride 104 Carbon Dioxide 28 BUN 10 Creatinine 0.9 Estimated Creat Clear 132.61 Estimated GFR 110 Glucose 110 Calcium 9.0 Total Bilirubin 5.3 H Direct Bilirubin 4.5 H AST 451 H ALT 945 H Alkaline Phosphatase 358 H Troponin I < 0.01 L C-Reactive Protein Total Protein 7.0 Albumin 4.1 Lipase 70 Urine Color Urine Appearance Urine pH Ur Specific [place] Urine Protein Urine Glucose (UA) Urine Ketones Urine Blood Urine Nitrite Urine Bilirubin Urine Urobilinogen Ur Leukocyte Esterase Urine RBC Urine WBC Ur Squamous Epith Cells Urine Bacteria SARS-CoV-2 (PCR) Surg PTH (Off-Site) Pending 03/11/22 03/10/22 03/10/22 06:12 18:39 17:42 WBC 7.30 RBC 4.74 Hgb 13.6 Hct 42.2 MCV 89 MCH 29 MCHC 32 RDW Coeff of Aye 14.0 Plt Count 315 Neut % (Auto) 66.4 Lymph % (Auto) 19.0 L [place] % (Auto) 10.4 Eos % (Auto) 2.7 Baso % (Auto) 0.7 Neut # (Auto) 4.84 Lymph # (Auto) 1.40 [place] # (Auto) 0.80 Eos # (Auto) 0.20 Baso # (Auto) 0.05 Abs Immat Gran (auto) 0.06 Sodium Potassium 4.9 Chloride Carbon Dioxide BUN Creatinine Estimated Creat Clear Estimated GFR Glucose Calcium Total Bilirubin Direct Bilirubin AST ALT Alkaline Phosphatase Troponin I C-Reactive Protein Total Protein Albumin Lipase Urine Color Urine Appearance Urine pH Ur Specific [place] Urine Protein Urine Glucose (UA) Urine Ketones Urine Blood Urine Nitrite Urine Bilirubin Urine Urobilinogen Ur Leukocyte Esterase Urine RBC Urine WBC Ur Squamous Epith Cells Urine Bacteria SARS-CoV-2 (PCR) Negative SARS-CoV-2 Surg PTH (Off-Site) 03/10/22 03/10/22 03/10/22 17:42 15:55 15:45 WBC RBC Hgb Hct MCV MCH MCHC RDW Coeff of Aye Plt Count Neut % (Auto) Lymph % (Auto) [place] % (Auto) Eos % (Auto) Baso % (Auto) Neut # (Auto) Lymph # (Auto) [place] # (Auto) Eos # (Auto) Baso # (Auto) Abs Immat Gran (auto) Sodium 139 Potassium 5.4 H Chloride 106 Carbon Dioxide 23 BUN 13 Creatinine 0.9 Estimated Creat Clear 132.61 Estimated GFR 110 Glucose 102 Calcium 9.0 Total Bilirubin 4.6 H Direct Bilirubin AST 630 H ALT 21 Alkaline Phosphatase 341 H Troponin I < 0.01 L C-Reactive Protein 1.5 H Total Protein 7.7 Albumin 4.5 Lipase 88 Urine Color Allie A Urine Appearance Clear Urine pH 5.5 Ur Specific [place] 1.020 Urine Protein Negative Urine Glucose (UA) Negative Urine Ketones Negative Urine Blood Trace-lysed A Urine Nitrite Negative Urine Bilirubin 3+ A Urine Urobilinogen 0.2 Ur Leukocyte Esterase Negative Urine RBC 0-2 Urine WBC 0-2 Ur Squamous Epith Cells None Urine Bacteria None SARS-CoV-2 (PCR) Surg PTH (Off-Site) 03/10/22 03/10/22 15:40 15:30 WBC RBC Hgb Hct MCV MCH MCHC RDW Coeff of Aye Plt Count Neut % (Auto) Lymph % (Auto) [place] % (Auto) Eos % (Auto) Baso % (Auto) Neut # (Auto) Lymph # (Auto) [place] # (Auto) Eos # (Auto) Baso # (Auto) Abs Immat Gran (auto) Sodium Potassium Chloride Carbon Dioxide BUN Creatinine Estimated Creat Clear Estimated GFR Glucose Calcium Total Bilirubin Direct Bilirubin 0.3 AST ALT Alkaline Phosphatase Troponin I 0.05 H C-Reactive Protein Total Protein Albumin Lipase Urine Color Urine Appearance Urine pH Ur Specific [place] Urine Protein Urine Glucose (UA) Urine Ketones Urine Blood Urine Nitrite Urine Bilirubin Urine Urobilinogen Ur Leukocyte Esterase Urine RBC Urine WBC Ur Squamous Epith Cells Urine Bacteria SARS-CoV-2 (PCR) Surg PTH (Off-Site) Discharge Plan Discharge Disposition: [facility] Discharging Surgeon: Radames Ann Follow-Up Appointment: 2 weeks NF Prescriptions: New hydrocodone-acetaminophen 5-325 mg tablet 1 tab PO Q6H PRN (Reason: pain) Qty: 25 0RF Continued trazodone 50 mg tablet 50 - 150 mg PO HS 0RF fluoxetine 40 mg capsule 40 mg PO DAILY 0RF Activity Level: No strenuous activity Discharge Diet: Regular Patient Instructions: General Anesthesia (DC), Laparoscopic Cholecystectomy (DC), Post-Operative Instructions: Laparoscopic Cholecystectomy Follow-up: Radames Ann MD [Staff Physician] - Discharge Orders: Discharge Order (Routine); Ordered 03/11/22 Ordered By: Radames Ann
--- NOTE | 2022-03-11 18:36 | PC.NURSE ---
Addendum entered by Brooke Maldonado RN 03/11/22 19:34: Pt. discharged from med/surg at 1930. Compazine administered for N/V. tolerated well and verbalized improvement. Original Note: Pt. up to floor at 1515. Pt. reports nausea. Zofran administered. Pt. reported no pain at surgical site but existing pain due to remaining stones left in bile duct. Pt. will need to be transferred to [place] for an ERCP to remove remaining stones. Pt. vitally stable. Pt. was advanced to clears and did not tolerate ice chips well. LR running 100 mls/hr. Gave Nurse to Nurse ([phone]) @ [place] at 1830. They confirmed they have a bed awaiting pt. Pt. will be saline locked and get transferred with IV intact. Pt. will be transported via personal transport accompanied by .
[2022-03-11] MEDS: PROCHLORPERAZINE 5 MG/ML VIAL 10 MG IV (19:15)
== END 2022-03-11 19:30 | disposition short-term general hospital (02) ==
LOC: ED 15:35 → MEDSURG 03-11 06:30 → SS 03-11 08:57 → MEDSURG 03-11 08:57
PROVIDERS: Family Medicine; Emergency Provider Student in an Organized Health Care Education/Training Program; PCP Physician Assistant Medical; Visit Provider Surgery
PROC: 0FT44ZZ Resection of Gallbladder, Percutaneous Endoscopic Approach (ICD-10-PCS; CPT 47563; principal; 2022-03-11 10:20)
DX: K80.47 Calculus of bile duct with acute and chronic cholecystitis with obstruction (principal); K82.8 Other specified diseases of gallbladder
CPT/HCPCS: 47564; 00790; 36415; 74300; 76000; 76705; 80053; 81001; 82248; 83690; 84132; 84484; 85025; 86140; 87635; 88304; 93005; 99283; 99284; 99285; A9270; C1769; C9113; J0330; J0690; J0780; J1170; J1885; J1956; J2250; J2405; J2704; J2710; J3010; J7120

== ENCOUNTER 2024-09-12 08:18 | Outpatient (CLI) | payer OTHER, SELFPAY | END 2024-09-12 08:19 | disposition home or self-care (01) | PROVIDERS: PCP Physician Assistant Medical; Visit Provider Physician Assistant Medical | DX: E78.5 Hyperlipidemia, unspecified (principal); Z13.29 Encounter for screening for other suspected endocrine disorder | CPT/HCPCS: 80053; 80061; 84443 ==

== ENCOUNTER 2025-01-13 09:59 | Outpatient (CLI) | payer OTHER, SELFPAY | END 2025-01-13 10:00 | disposition home or self-care (01) | LOC: FRMREF 10:00 | PROVIDERS: PCP Physician Assistant Medical; Visit Provider Physician Assistant Medical | DX: M53.3 Sacrococcygeal disorders, not elsewhere classified (principal) | CPT/HCPCS: 80053 ==